=== PATIENT | male | born 1980 | race Caucasian/White ===

== ENCOUNTER 2016-10-24 08:47 | Day surgery (SDC) | payer OTHER ==
[~2016-10-24] VITALS: Ht 182.9 cm; Wt 86.3 kg
[2016-10-24] VITALS (10 sets, daily range): BP systolic 106–131; BP diastolic 57–86; PULSE 52–84; RESP 14–18; TEMP 97.7–98.1; O2SAT 97–98; Ht 182.9 cm; Wt 86.3 kg
[~2016-10-24 08:47] MED LIST: ACYC400T PO; LIDOCAINE 1% (10mg/ml) 2ml SDV INJ ONE
[2016-10-24] MEDS: LR 1,000 ML IV PRN ×2 (09:19→12:46)
[2016-10-24] MEDS ORDERED: BUPIVACAINE 0.25%/EPI 1:200,000 30ml SDV ONE (10:01)
--- NOTE | 2016-10-24 10:22 | ANESPREOP ---
Anesthesia Record Date and Time DATE: 10/24/16 TIME: 10:21 Proposed Surgical Procedure EXCISION OF BDOMINAL WALL MASS NPO since: 2300 Allergies: Coded Allergies: amoxicillin (Verified Allergy, Mild, RASH, 10/24/16) metronidazole (Verified Allergy, Mild, ABDOMINAL DISCOMFORT, 10/24/16) Ht/Wt/BMI Height: 6 ' 0.00 " Weight: 86.300 kg BMI: 25.8 kg/m2 Vital Signs Date Time Temp Pulse Resp B/P Pulse Ox O2 Delivery O2 Flow Rate FiO2 10/24/16 10:10 98.1 10/24/16 09:00 84 14 129/82 98 Room Air Medications Inpatient Medications Current Medications Medications (Trade) Dose Ordered Sig/Katie Start Time Stop Time Status Last Admin Dose Admin Lactated Ringer's (Lactated Ringers) 1,000 ml @ 50 mls/hr Q20H PRN 10/24/16 07:00 10/24/16 09:19 50 MLS/HR Acyclovir (Acyclovir) 400 Mg Tablet, 1 TAB PO BID, (Reported) Last Taken: on 10/23/16 0800 Currently on Beta Dion: No Medical/Surgical History Smoking Status: Never smoker Use Chewing Tobacco?: No Second Hand Exposure: No Substance Use Type: does not use Alcohol Intake: none Past Surgical History Orthopedic Surgeries: Yes - BILAT ELBOW, R ANKLE Abdominal Surgeries: Genitourinary Surgeries: Cardiac Surgeries: Endocrine Surgeries: Reproductive Surgeries: Neurological Surgeries: Ear Surgeries: Nose Surgeries: Throat Surgeries: Other Surgeries: Yes - WISDOM TEETH REMOVAL Anesthesia Adverse Reactions: FOUND none Family Hx of Anesthesia Advers: none Hx of Motion Sickness: No Physical Exam Respiratory: Lungs clear Cardiovascular: FOUND Regular rate, rhythm Airway Assessment Mallampati Score: II TMD: 3 Fingerbreadths Neck Extension: Good Overall Assessment: No Airway Concerns ASA: 1 Plan Anesthesia Plan: TIVA, LMA, GETA Discussion Discussed risks/options/alternatives of anesthesia and questions answered. Patient consents. Nursing pain assessment noted. Present: Family Member Attestation Statement Prior to the delivery of any anesthetic medication, I examined the patient, developed the plan, obtained the patient's consent and discussed the risk and benefits of the procedure with the patient/guardian. ENRIQUE DEL ANGEL CRNA Oct 24, 2016 10:22
[2016-10-24] MEDS ORDERED: FENTANYL 100mcg/2ml INJECTION ONE (10:32)
[2016-10-24] MEDS ORDERED: MIDAZOLAM 2mg/2ml INJECTION ONE (10:32)
[2016-10-24] MEDS ORDERED: PROPOFOL 500mg 50 ML IV ONE (10:33)
[2016-10-24] MEDS ORDERED: HYDROCODONE/APAP 5 mg/325 mg TABLET PO PRN (12:00)
[2016-10-24] MEDS ORDERED: SCOPOLAMINE 1.5 MG PATCH TD ONE (12:15)
[2016-10-24] MEDS ORDERED: FAMOTIDINE 20 MG TABLET PO SCH (12:15)
[2016-10-24] MEDS ORDERED: HYDR-4246 PO (12:33)
[2016-10-24] MEDS ORDERED: IBUP-1724 PO (12:33)
[2016-10-24] MEDS ORDERED: KETOROLAC 30mg/ml INJECTION IV PRN (12:45)
--- NOTE | 2016-10-24 14:39 | ANESPO ---
Post-Op Note Date 10/24/16 Time: 13:00 Status Pt Participated in Evaluation: Pt participated in person Vital Signs Date Time Temp Pulse Resp B/P Pulse Ox O2 Delivery O2 Flow Rate FiO2 10/24/16 13:25 67 16 131/83 97 Room Air 10/24/16 11:34 98.0 6.00 Respiratory Function: Airway patent, Regular respirations Cardiovascular Function: Regular pulse Pain Level Intensity: 1 Unable to Assess Pain Due To: Medicated/Sleeping Hydration: Taking po fluids Complications during Recovery None apparent Follow-Up Instructions Instructions Per Surgeon SOURAV MOSQUERA CRNA Oct 24, 2016 14:39
--- NOTE | 2016-10-25 07:39 | OPNOTEF ---
DATE OF PROCEDURE 10/24/2016 SURGEON Ori Bryan MD PREOPERATIVE DIAGNOSIS Symptomatic subcutaneous masses involving right upper quadrant of anterior abdominal wall. POSTOPERATIVE DIAGNOSIS Symptomatic subcutaneous masses involving right upper quadrant of anterior abdominal wall. PROCEDURE Excision of three subcutaneous masses from right upper quadrant of anterior abdominal wall. ANESTHESIA TIVA/local. BRIEF HISTORY/INDICATIONS Mr. Leblanc is a 35-year-old male who recently presented to my office as a result of several subcutaneous masses. The patient did have three subcutaneous masses, however, that were causing him an element of discomfort involving the right upper quadrant of his anterior abdominal wall. Upon examination the patient was found to have three separate masses, two of which were about a centimeter in dimension and the third was slightly larger at about 2 to 2.5 cm in diameter. 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 It was recommended to the patient, given the fact that they were causing him an element of discomfort and had increased in size, to proceed with an excisional biopsy of these areas of concern. Patient presents today to undergo this procedure. For completeness, please refer to notes included in the patient's chart. PROCEDURE After informed consent was obtained, the patient was brought to the operative suite and placed on the table in a slightly left lateral decubitus position. The areas of concern had been marked out preoperatively percutaneously with an ink pen. This area was prepped and draped in sterile fashion. Formal time-out was then completed. 0.25% Marcaine with epinephrine was injected overlying each palpable abnormality that, as stated previously, had been marked out percutaneously preoperatively. Next, two incisions were made overlying the smaller palpable subcutaneous masses. These incisions were about a [id number] to 2 cm in total length. A well-encapsulated benign lipomatous mass was discovered within the subcutaneous tissues in both of these locations. Each mass was excised in its entirety and submitted for pathologic evaluation. Both masses were on the order of about a centimeter in dimension. Attention was then focused to the larger palpable abnormality. A 2.5 to 3 cm incision was then made overlying the area of analgesia anterior to this palpable abnormality. Dissection was carried down through deep subcuticular tissues. Once again, a well-encapsulated benign-appearing lipomatous lesion was identified. This lipomatous lesion was about 2.5 cm in diameter and was excised in its entirety and also passed off the table as a surgical specimen. Hemostasis was obtained within each wound with the use of electrocautery. Each incision was closed in layers. Deep subcutaneous tissues were reapproximated by placing a few simple interrupted sutures of 3-0 Vicryl. Skin edges were then closed in a running subcuticular fashion with 4-0 Monocryl. Dermabond was placed overlying each incision. Patient is in the process of awakening from his anesthetic and will be sent back to recovery room once deemed in stable condition. OZIEL
== END 2016-10-24 13:35 | disposition home or self-care (01) ==
LOC: SCU 08:47
PROVIDERS: ATTEND Surgery
DX: D17.1 Benign lipomatous neoplasm of skin and subcutaneous tissue of trunk (principal); G43.009 Migraine without aura, not intractable, without status migrainosus; Z88.1 Allergy status to other antibiotic agents
CPT/HCPCS: 11402; 11403; 12032; J1885; J2250; J3010; J7120